=== PATIENT | female | born 1950 | race African-American/Black ===

== ENCOUNTER 2019-04-04 03:16 | Emergency (ER) | payer OTHER, MEDICARE ==
[2019-04-04] MEDS: HYDROCODONE/APAP (10/325) TAB PO (03:55)
== END 2019-04-04 04:50 | disposition home or self-care (01) ==
LOC: FTE 03:16
DX: M54.5 Low back pain (principal); I10 Essential (primary) hypertension
CPT/HCPCS: 99283